=== PATIENT | female | born 1995 | race Caucasian/White ===

== ENCOUNTER 2021-06-02 06:32 | Emergency (ER) | payer SELFPAY ==
[~2021-06-02] VITALS: Ht 157 cm; Wt 108.0 kg
[2021-06-02 06:35] VITALS: BP 115/79
--- NOTE | 2021-06-02 07:06 | ED Cough/URI ---
General Chief Complaint: COVID19 Suspect/Confirmed Stated Complaint: FEVER/COUGH Source: patient Exam Limitations: no limitations History of Present Illness Date Seen by Provider: Jun 02, 2021 Time Seen by Provider: 06:55 Initial Comments 26yoF with PMH of HTN coming in due to fever, cough, body aches, n/v, and diarrhea for 2 days. Taking tylenol as needed which helps. Has had the J&J vaccine for COVID. Denies any chest pain, SOA, abd pain, or any other concerns, LMP less than a month ago. Allergies and Home Medications Allergies Coded Allergies: No Known Drug Allergies (Unverified , 06/02/21) Patient Home Medication List Home Medication List Reviewed: Yes Review of Systems Review of Systems Constitutional: chills, fever EENTM: No blurred vision Respiratory: cough; No short of breath Cardiovascular: No chest pain Gastrointestinal: No abdominal pain; diarrhea, nausea, vomiting Genitourinary: no symptoms reported Musculoskeletal: no symptoms reported Skin: no symptoms reported Psychiatric/Neurological: No Symptoms Reported Hematologic/Lymphatic: No Symptoms Reported Immunological/Allergic: no symptoms reported All Other Systems Reviewed Negative Unless Noted: Yes Past Gwnrofe-Mewnqg-Adshin Hx Patient Social History Tobacco Use?: Yes Past Medical History Surgeries: No Physical Exam Capillary Refill : Height: '" Weight: lbs. oz. kg; BMI Method: General Appearance: WD/WN, no apparent distress HEENT: PERRL/EOMI Neck: non-tender, full range of motion, supple, normal inspection Respiratory: chest non-tender, lungs clear, normal breath sounds, no respiratory distress, no accessory muscle use Cardiovascular: regular rate, rhythm, no edema, no murmur Gastrointestinal: normal bowel sounds, non tender, soft; No distended, No guarding, No rebound Extremities: normal range of motion, non-tender, normal inspection, no pedal edema, no calf tenderness, normal capillary refill Neurologic/Psychiatric: no motor/sensory deficits, alert, normal mood/affect Skin: normal color, warm/dry Lymphatic: no adenopathy Progress/Results/Core Measures Suspected Sepsis SIRS Temperature: Pulse: Respiratory Rate: Blood Pressure / Mean: Results/Orders My Orders Orders - ANASTACIA LORA MD Ondansetron Oral Dissolve Tab (Zofran (06/02/21 07:07) Influenza A & B Antigens (06/02/21 07:07) Covid 19 Inhouse Test (06/02/21 07:07) Ibuprofen Tablet (Motrin Tablet) (06/02/21 07:15) Vital Signs/I&O Capillary Refill : Progress Note : Progress Note 26yoF with above history coming in for flu like illness. VSS and ABCs intact. Well appearing. Given zofran and ibuprofen. Flu and COVID sent. Patient would like to leave before results so I will call her when the flu comes back. She was then discharged home in stable condition with strict return precautions. Departure Impression Primary Impression: Flu-like symptoms Additional Impression: Person under investigation for COVID-19 Disposition: 01 HOME, SELF-CARE Condition: Stable Departure-Patient Inst. Decision time for Depature: 07:16 Referrals: DAMIAN KEY APRN (PCP/Family) Primary Care Physician Patient Instructions: COVID-19 ED Add. Discharge Instructions: You probably have the flu or COVID. Drink plenty of water. Take 600mg ibuprofen every 6 hours and tylenol 1000mg every 6 hours. Zofran was sent to the pharmacy for nausea. You can take over the counter pepto bismol for diarrhea. Scripts Ondansetron (Ondansetron Odt) 4 Mg Tab.rapdis 4 MG PO Q6H PRN for NAUSEA/VOMITING-1ST LINE for 5 Days, #20 TAB Prov: ANASTACIA LORA MD 06/02/21 Work/School Note: Work Release Form Date Seen in the Emergency Department: Jun 02, 2021 Return to Work: Jun 06, 2021 Restrictions: Return-No Fever (24hrs), Return-No Vomiting(24hrs) ANASTACIA LORA MD Jun 02, 2021 07:06
[2021-06-02] MEDS ORDERED: ONDANSETRON 4 MG (ZOFRAN) ORAL DISSOLVE TAB SL STA (07:07)
[2021-06-02] MEDS ORDERED: IBUPROFEN 600 MG (MOTRIN) TAB PO ONE (07:15)
[2021-06-02] MEDS ORDERED: ONDA4TAB11 PO (07:18)
== END 2021-06-02 07:30 | disposition home or self-care (01) ==
LOC: EDUNIT# 06:32 → ER FS 06:36
DX: R50.9 Fever, unspecified (principal); R05.1 Acute cough; R11.2 Nausea with vomiting, unspecified; R19.7 Diarrhea, unspecified; R52 Pain, unspecified; I10 Essential (primary) hypertension; Z20.822 Contact with and (suspected) exposure to COVID-19
CPT/HCPCS: 87635; 87804; 99283

== ENCOUNTER 2022-12-23 07:24 | Emergency (ER) | payer SELFPAY ==
[~2022-12-23 07:24] MED LIST: ONDA4TAB11 PO
--- NOTE | 2022-12-23 07:31 | ED EENT ---
History of Present Illness General Chief Complaint: Dental Problems/Pain Stated Complaint: DENTAL PAIN History of Present Illness Date Seen by Provider: Dec 23, 2022 Time Seen by Provider: 07:30 Initial Comments 27-year-old female is here with complaints of left lower broken tooth for which she saw a dentist and was started on the first half of the root canal the other day. Patient is in the ER today because of pain and needs a work note. Patient states that yesterday she was taking 800 mg of ibuprofen every 2 hours without much pain relief. Patient is also on Augmentin which was given by her dentist. Denies fever and chills, face swelling. Allergies and Home Medications Allergies Coded Allergies: No Known Drug Allergies (Unverified , 06/02/21) Patient Home Medication List Home Medication List Reviewed: Yes Ondansetron (Ondansetron Odt) 4 Mg Tab.rapdis, 4 MG PO Q6H PRN for NAUSEA/VOMITI NG-1ST LINE Prescribed by: ANASTACIA LORA on 06/02/21 0718 Review of Systems Review of Systems Constitutional: no symptoms reported Eyes: No Symptoms Reported Ears: No Symptoms Reported Nose: no symptoms reported Mouth: see HPI, other (Dental pain) Throat: no symptoms reported Respiratory: no symptoms reported Cardiovascular: no symptoms reported Gastrointestinal: no symptoms reported Musculoskeletal: no symptoms reported Skin: no symptoms reported Neurological: No Symptoms Reported Past Feqvpap-Mazcde-Xlxmdn Hx Past Medical History Surgeries: No Physical Exam Vital Signs Vital Signs - First Documented 12/23/22 07:29 Temp 36.7 Pulse 84 Resp 16 B/P (MAP) 134/86 (102) Pulse Ox 99 O2 Delivery Room Air Height, Weight, BMI Height: '" Weight: lbs. oz. kg; 43.00 BMI Method: General Appearance: WD/WN, no apparent distress Nose: normal inspection Mouth/Throat: dental tenderness, other (Left lower molar is broken and has been started on the first part of the process for root canal. Overall poor dental hygiene) Neck: full range of motion Neurologic/Psychiatric: alert, oriented x 3 Skin: normal color Progress/Results/Core Measures Results/Orders Vital Signs/I&O 12/23/22 07:29 Temp 36.7 Pulse 84 Resp 16 B/P (MAP) 134/86 (102) Pulse Ox 99 O2 Delivery Room Air Progress Progress Note : Progress Note 1. DENTAL PAIN/ CARIES: - Discussed pain control with Ibuprofen 600mg every 6 hours, and stagger/ alternate with Tylenol 650mg every 4 hours, and start the Tylenol two hours after taking the Ibuprofen. - Continue course of Augmentin - Keep dental appointment for 12/28/22 to complete root canal. - Work note given - Good oral hygiene measures discussed - Soft bland foods Departure Impression Primary Impression: Dental caries Disposition: HOME, SELF-CARE Condition: Stable Departure-Patient Inst. Referrals: DAMIAN KEY APRN (PCP) Primary Care Physician [facility] (Family) Primary Care Physician Patient Instructions: Fractured Tooth (DC), Dental Pain Add. Discharge Instructions: - Pain control with Ibuprofen 600mg every 6 hours, and stagger/ alternate with Tylenol 650mg every 4 hours, and start the Tylenol two hours after taking the Ibuprofen. - Continue course of Augmentin - Keep dental appointment for 12/28/22 to complete root canal. - Good oral hygiene - Soft bland foods All discharge instructions reviewed with patient and/or family. Voiced understanding. Work/School Note: Work Release Form Date Seen in the Emergency Department: Dec 23, 2022 Return to Work: Dec 24, 2022 Restrictions: No Restrictions Other Restrictions Listed Below: NA Restrictions: JOYCE QUINTEROS MD Dec 23, 2022 07:31
[2022-12-23 07:49] VITALS: BP 134/86
== END 2022-12-23 07:49 | disposition home or self-care (01) ==
LOC: EDUNIT# 07:24 → ER FS 07:26
DX: K02.9 Dental caries, unspecified (principal); Z28.310 Unvaccinated for COVID-19
CPT/HCPCS: 99282